=== PATIENT | male | born 1990 | race Two or more races ===

== ENCOUNTER 2021-08-18 17:35 | Emergency (ER) | payer BC, SELFPAY ==
--- NOTE | 2021-08-18 17:38 | ED.ABDPAIN ---
HPI - Abdominal Pain General Chief Complaint: Abdominal Pain Stated Complaint: abd pain Time Seen by Provider: 08/18/21 18:00 Source: patient and RN notes reviewed Mode of arrival: ambulatory Limitations: no limitations History of Present Illness HPI narrative: 30-year-old male with no significant medical history presents with concern for diarrhea. Reports symptoms started on Tuesday with diarrhea and abdominal cramping prior to his stool. Reports he is from [place] and he was seen in urgent care clinic in [place] on Tuesday, 1 day after his symptoms began and was given a Z-Vince. Reports he has 1 pill left and he continues to have loose stools. He reports 2-3 loose stools daily, he has had 3 loose stools today. He denies abdominal pain only reports cramping prior to having a bowel move. He reports decreased appetite, denies vomiting. He denies any known sick contacts. Denies body aches, chills, sweats, fever. 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 Reports he has a primary care doctor in [place]. elicited complaint: other (Diarrhea) Related Data Allergies Allergy/AdvReac Type Severity Reaction Status Date / Time No Known Allergies Allergy Verified 08/18/21 18:02 Review of Systems Review of Systems: CONSTITUTIONAL: Denies malaise, chills, sweats, or fever. ENT: Denies rhinorrhea, congestion, sinus pain, otalgia or sore throat. CARDIOVASCULAR: Denies chest pain, palpitations, or edema. RESPIRATORY: Denies cough or dyspnea. GASTROINTESTINAL: Denies abdominal pain, nausea, vomiting. Reports 2-3 loose diarrhea stools daily, abdominal cramping, decreased appetite SKIN: Denies rash or itching. MUSCULOSKELETAL: Denies myalgia. All systems reviewed & are unremarkable except as noted in HPI and below PMFSH Comments At time of signature, agree with nursing past medical, surgical, social and family history. There is no relevant family history pertinent to the presenting complaint Exam Narrative: GENERAL: Well-appearing, well-nourished, and in no acute distress. HEAD: Normocephalic, atraumatic. EYES: PERRLA, conjunctivae clear, and EOMI. ENT: Nares clear, turbinates pink, no rhinorrhea or epistaxis. Mucous membranes moist. Oropharynx without edema, erythema, or lesions. Tonsils not enlarged and without exudate. NECK: Supple. No lymphadenopathy CHEST: Speaks in full sentences. No respiratory distress. HEART: Regular rate and rhythm. ABDOMEN: Soft, flat, nondistended. No guarding, rebound tenderness, or rigid. No pulsatilla masses. Bowel sounds present in all four quadrants. No organomegaly. Negative Segundo?s sign. No periumbilical tenderness. No Supra public tenderness or distension. Good femoral pulses bilaterally. SKIN: Warm, dry, no rash. NEURO: Alert and oriented x3. PSYCH: Normal mood and affect Course Course Emergency Course: Patient is aware of diagnosis, understands and agrees to treatment plan. Anticipatory guidance given. Patient agrees to follow-up as directed and is aware of reasons to seek care at the emergency department. Portions of this record may have been created with voice recognition software Vital Signs Vital signs: Reviewed. MDM - Abdominal Pain MDM Narrative Medical decision making narrative: Exam findings show no acute concerns or changes; patient is non-toxic appearing and is in no distress. Patient is appropriate for outpatient treatment and follow-up. Differential Diagnosis Differential diagnosis: Likely abdominal pain, diverticulitis, gastroenteritis, small bowel obstruction and other (Foodborne illness, viral illness) Critical Care Time Critical Care Time Critical Care Time: No Discharge Plan Discharge Clinical Impression: Diarrhea Qualifiers: Diarrhea type: unspecified type Qualified Code(s): R19.7 - Diarrhea, unspecified Patient Disposition: Home, Self-Care Condition: Stable Instructions: Acute Diarrhea (ED) Additional Instructions: T
[2021-08-18 17:57] VITALS: BP 117/70; PULSE 68; RESP 16; TEMP 35.8; O2SAT 99
== END 2021-08-18 18:15 | disposition home or self-care (01) ==
PROVIDERS: Emergency Provider Nurse Practitioner
DX: R19.7 Diarrhea, unspecified (principal); R10.9 Unspecified abdominal pain
CPT/HCPCS: 99213; G0463